=== PATIENT | female | born 1950 | race African-American/Black ===

== ENCOUNTER 2018-09-05 01:26 | Emergency (ER) | payer MEDICARE ==
[~2018-09-05] VITALS: Ht 162.6 cm; Wt 91.0 kg
[2018-09-05] MEDS ORDERED: HYDROCODONE/ACETAMINOPHEN 5/325MG TABLET PO ONE (02:00)
[2018-09-05 03:48] VITALS: BP 159/95
== END 2018-09-05 04:01 | disposition home or self-care (01) ==
LOC: ER 01:59
DX: M25.571 Pain in right ankle and joints of right foot (principal); M25.561 Pain in right knee; M25.532 Pain in left wrist; Z91.81 History of falling; I10 Essential (primary) hypertension
CPT/HCPCS: 29125; 73110; 73562; 73610; 73630; 99283